=== PATIENT | male | born 1985 | race Native Hawaiian/Other Pacific Islander ===

== ENCOUNTER → 2017-06-16 | Outpatient (CLI) | payer BC | LOC: GMAM 12:55 | PROVIDERS: ATTEND Family Medicine | DX: M25.571 Pain in right ankle and joints of right foot (principal) ==

== ENCOUNTER → 2017-06-23 | Outpatient (CLI) | payer BC ==
--- NOTE | 2017-06-23 15:45 | US ---
EXAM DESCRIPTION: Liver: ULTRASOUND. CLINICAL HISTORY: ELEVATED LFTs COMPARISON: Ultrasound gallbladder 10/04/2015. TECHNIQUE: Transabdominal scannin-dimensional and Doppler modes. FINDINGS: Gallbladder: normal size, shape, echogenicity; no intraluminal stones or sludge. No fluid around the gallbladder. No wall thickening. 0.3 mm. Non-tender with transducer pressure. Common bile duct: caliber 4.0 mm within normal limits. Liver: Increased echogenicity; contour liver capsule smooth where seen. No fluid around the liver. Intrahepatic biliary ducts normal caliber. Doppler hepatopedal flow portal vein.. Long axis right lobe 14.6 cm. Pancreas: Incompletely visualized-normal size and echogenicity. Duct not seen. IMPRESSION: Fatty infiltration of the liver. Normal size. Smooth capsule. Normal intrahepatic ducts. Normal vascularity. No ascites. Normal ultrasound of the gallbladder. Normal ducts. Electronically signed by: Josse Rodriguez MD 06/23/2017 3:44 PM CDT
== END ==
LOC: US 08:12
PROVIDERS: ATTEND Family Medicine
DX: R94.5 Abnormal results of liver function studies (principal); K76.0 Fatty (change of) liver, not elsewhere classified

== ENCOUNTER → 2017-07-27 | Outpatient (CLI) | payer BC | LOC: GMAM 13:16 | PROVIDERS: ATTEND Family Medicine | DX: M10.9 Gout, unspecified (principal); R94.5 Abnormal results of liver function studies ==

== ENCOUNTER → 2017-08-05 | Outpatient (CLI) | payer BC | LOC: LAB.O 09:03 | DX: R74.8 Abnormal levels of other serum enzymes (principal); R74.0 Nonspecific elevation of levels of transaminase and lactic acid dehydrogenase [LDH] ==

== ENCOUNTER → 2017-08-17 | Outpatient (CLI) | payer BC | LOC: GMAM 10:31 | PROVIDERS: ATTEND Family Medicine | DX: E53.8 Deficiency of other specified B group vitamins (principal) ==

== ENCOUNTER → 2017-09-15 | Outpatient (CLI) | payer BC | LOC: GMAM 11:53 | PROVIDERS: ATTEND Family Medicine | DX: M10.9 Gout, unspecified (principal) ==

== ENCOUNTER → 2017-12-30 | Outpatient (CLI) | payer BC | LOC: LAB.O 09:50 | DX: R93.2 Abnormal findings on diagnostic imaging of liver and biliary tract (principal); B16.9 Acute hepatitis B without delta-agent and without hepatic coma; R94.5 Abnormal results of liver function studies ==